=== PATIENT | female | born 1955 | race Caucasian/White ===

== ENCOUNTER → 2021-03-21 | Outpatient (CLI) | payer MEDICARE ==
[~2021-03-21] MED LIST: ASPIRIN EC81 MG PO; ATORVASTATIN CA20 MG PO; JARDIANCE10 MG PO; LISINOPRIL10 MG PO; VENLAFAXINE HCL75 MG PO
[2021-03-21 17:22] LABS: BORDETELLA PARAPERTUSSIS Not Detected (Not Detectd); BORDETELLA PERTUSSIS Not Detected (Not Detectd); CHLAMYDIA PNEUMONIAE Not Detected (Not Detectd); CORONAVIRUS HKU1 Not Detected (Not Detectd); CORONAVIRUS NL63 Not Detected (Not Detectd); CORONAVIRUS OC43 Not Detected (Not Detectd); CORONOAVIRUS 229E Not Detected (Not Detectd); HUMAN METAPNEUMOVIRUS Not Detected (Not Detectd); INFLUENZA A Not Detected (Not Detectd); INFLUENZA B Not Detected (Not Detectd); MYCOPLASMA PNEUMONIAE Not Detected (Not Detectd); PARAINFLUENZA VIRUS 1 Not Detected (Not Detectd); PARAINFLUENZA VIRUS 2 Not Detected (Not Detectd); PARAINFLUENZA VIRUS 3 Not Detected (Not Detectd); PARAINFLUENZA VIRUS 4 Not Detected (Not Detectd); RESPIRATORY SYNCYTIAL VIRUS Not Detected (Not Detectd)
[2021-03-21 19:48] LABS: SARS-CoV-2 NOT DETECTED (Not Detectd)
[2021-03-21 19:49] LABS: HUMAN RHINOVIRUS/ENTEROVIRUS DETECTED (Not Detectd)
== END ==
LOC: EXRD 15:39
PROVIDERS: Physician Assistant
DX: R05 Cough (principal); Z20.822 Contact with and (suspected) exposure to COVID-19
CPT/HCPCS: 71046; 87633

== ENCOUNTER → 2021-11-25 | Outpatient (CLI) | payer MEDICARE | LOC: KOH-I 11:30 | DX: M25.551 Pain in right hip (principal); M54.50 Low back pain, unspecified; M47.816 Spondylosis without myelopathy or radiculopathy, lumbar region | CPT/HCPCS: 72100; 73502 ==

== ENCOUNTER → 2022-01-18 | Outpatient (CLI) | payer MEDICARE | LOC: HEART 5 12-07 10:30 | DX: R09.89 Other specified symptoms and signs involving the circulatory and respiratory systems (principal) ==